=== PATIENT | male | born 1970 | race Caucasian/White ===

== ENCOUNTER → 2025-01-15 | Outpatient (CLI) | payer MEDICARE, SELFPAY ==
--- NOTE | 2025-01-15 14:00 | XR_ITS ---
Examination: Venous duplex lower extremity sonogram, bilateral. Date and time of exam: January 15, 2025 1359 hours INDICATIONS: Bilateral lower leg edema and discoloration 3.5 years Technique: Multiple sonographic images of the deep venous system have been obtained. B-mode/2-D grayscale imaging of vascular structures and Doppler spectral analysis (waveforms) and color performed Both legs are examined. Findings: Deep venous systems do not demonstrate abnormal echogenicity. All visualized deep veins exhibit compressibility. All visualized deep veins exhibit augmentation. Impression: Negative for deep vein thrombosis
== END | disposition home or self-care (01) ==
PROVIDERS: PCP Internal Medicine Cardiovascular Disease; Referring Provider Student in an Organized Health Care Education/Training Program; Visit Provider Student in an Organized Health Care Education/Training Program
DX: R60.0 Localized edema (principal)
CPT/HCPCS: 93970